=== PATIENT | female | born 1950 | race Caucasian/White ===

== ENCOUNTER → 2017-02-11 | Outpatient (CLI) | payer OTHER | LOC: FIMAGING 15:08 | PROVIDERS: ATTEND Family Medicine | DX: Z12.31 Encounter for screening mammogram for malignant neoplasm of breast (principal) | CPT/HCPCS: G0202 ==

== ENCOUNTER 2017-04-30 20:55 | Inpatient (IN) | payer OTHER ==
--- NOTE | 2017-04-30 21:07 | EDPHY ---
H & P Smoking Status: Never smoked Time Seen by Provider: 04/30/17 21:01 HPI/ROS: CHIEF COMPLAINT: Can not walk HISTORY OF PRESENT ILLNESS: History from EMS. Apparently the patient and her were drinking alcohol all day. Couple hours ago she got weak and almost fell down but her caught her and she did not sustain any trauma. She still would not walk and so EMS was called. Patient is lethargic and slurred speech and really unable to answer questions at this time. Review of systems and further history unavailable because the patient's altered mental status. PAST MEDICAL HISTORY: Depression on SSRI Social history: Recent alcohol General Appearance: Lethargic but opens eyes spontaneously and slurs her words Eyes: No scleral icterus. Pupils reactive and extraocular motion intact ENT, Mouth: Normal mucous membranes. No tongue laceration or abrasion Respiratory: Normal respiratory effort, breath sounds equal, lungs are clear to auscultation. Cardiovascular: Regular rate and rhythm. Gastrointestinal: Abdomen is soft and non tender. Neurological: Patient is alert but has slurred speech her face is symmetric and she can move all 4 extremities. Skin: She does have old ecchymoses in all 4 extremities Musculoskeletal: No extremity deformity or tenderness and no cervical thoracic or lumbar spine tenderness. Psychiatric: Not agitated. Emergency Department course/MDM: Plan for labs to include alcohol and metabolic panel. Serial clinical examinations. 2202: Ethanol is 489, temperature 34.1 degrees. Chadwick Hugger applied. 2229: Signed out to [facility] with plan for disposition after the patient is normothermic and clinically sober. (Julio Ta) Constitutional: Initial Vital Signs Heart Rate 57 L 04/30/17 21:15 Respiratory Rate 20 04/30/17 21:15 Blood Pressure 87/58 L 04/30/17 21:15 O2 Sat (%) 94 04/30/17 21:15 O2 Delivery Mode Nasal Cannula O2 (L/minute) 2 Allergies/Adverse Reactions: latex Allergy (Verified 04/30/17 21:30) Home Medications: Medication Instructions Recorded Acetaminophen [Tylenol 325mg (*)] 325 mg PO DAILY PRN 05/01/17 FLUoxetine [Prozac 20 MG (*)] 40 mg PO DAILY 05/01/17 Medical Decision Making ED Course/Re-evaluation: 1225: Patient's vitals have been hypotensive for this initially was thought to do this significant alcohol intoxication and hypothermia and that she was lying on her side, however it is noted now that she is on her back and well resuscitated with fluids 3 L normal saline, she has normal 3rd make now and alcohol levels coming down I did shoot a chest x-ray which shows bilateral pneumonia this is concerning for aspiration pneumonia. It is possible that her hypotension is due to sepsis. 1226: I have ordered blood cultures, lactic acid, I have additionally given her broad-spectrum antibiotics IV vancomycin and IV Zosyn at this time. UA is pending This patient need to be admitted to the hospitalist service for acute alcohol intoxication, hypothermia that is resolved, bilateral pneumonia, Sepsis. If her blood pressure does not improve she may need vasopressor support. 1235AM: Spoke with the hospitalist service at this time agree to admit the pain. At that time the patient be admitted to step-down unit. She is doing broad-spectrum antibiotics IV vancomycin IV Zosyn. Chest x-ray reviewed shows bilateral pneumonia. Current blood pressure 105/67, heart rate 75, pulse ox 92% on room air 1257AM: Patient's blood pressure down to 80 systolic. Patient be moved from ER room 12 to ER room 2 for central line placement. She will be verbally consented. Critical Care: Total Critical Care Time Spent Managing this Patient: 65Minutes. This time was spent Exclusively with this patient. This Care was exclusive of procedures. The Organ System/life at risk was multiorgan, hemodynamics This Patient was in Critical Condition because persistent hypotension due to bilateral pneumonia, hypothermia, alcohol intoxication, dehydration Procedure: Central line placement. Patient was verbally consented and agreed for this procedure. Indication: Persistent hypotension with bilateral pneumonia in the setting hypothermia, alcohol intoxication, elevated lactic acid, Verbal informed consent was obtained, with the risks explained to include but not be limited to bleeding, infection, and collapsed lung. A timeout was observed and patients identity and correct procedure location confirmed. Full maximal sterile barrier technique was uses including cap, gown, sterile gloves, large sheet, hand washing and chlorhexidine prep. The area anesthetized with 1 % lidocaine. The RIGHT IJ was punctured with a 19 gauge finder needle, then a TLC was placed using standard Seldinger technique. There were no complications. Blood return low pressure, dark blood. Patient tolerated procedure well. CXR results: Negative for Pneumo, 9 is a little deep on 1st chest x-ray.. X-ray was interpreted by myself. The procedure was performed by myself. ED x-ray chest one view: Post line placement; line is deep. No pneumothorax. Will adjust line. And then repeat chest x-ray. 0131: Patient resting comfortably no complications central line in the right IJ. Blood pressure currently 85/65. Patient receive 4 L of fluid here in emergency room. So be started on low-dose Levophed to maintain her blood pressure. The lowest I have seen her 70 systolic. Broad-spectrum antibiotics were given vancomycin and Zosyn. Her initial lactic acid after 3 L of fluids 2.3. Lactic acid was elevated due to acute alcohol intoxication, volume depletion dehydration and bilateral focal pneumonia. 0134AM: Repeat chest x-ray one view for line placement: Shows good line placement. In the appropriate position. No pneumothorax. This is the 2nd chest x-ray for just line placement. Okay to use line for Levophed. Repeat lactic acid pending. 0152AM: mag and calcium low. Will replete in Er. (Kanu Kong) Differential Diagnosis: Differential for weakness and altered mental status considered including but not limited to seizure, stroke, metabolic, alcohol or drug, psychiatric. (Julio Ta) Critical Care Time: Critical care time spent by me, Dr. Ta, exclusively with the care of this patient was 30 minutes, exclusive of PA or SENIOR DEVOPS ENGINEER time and exclusive of separate procedures. The organ system at risk was metabolic and environmental with hypothermia and I ordered active external warming, serial exams, multiple diagnostic studies to stabilize the patient and prevent worsening of the patient 's condition. (Julio Ta) - Data Points Laboratory Results: Laboratory Results 04/30/17 21:00 04/30/17 21:00 Medications Given: Chlordiazepoxide HCl (Librium) 10 mg PO TID PRN PRN Reason: Anxiety, Able to Take PO Stop: 10/28/17 14:07 Last Admin: 05/01/17 22:15 Dose: 10 mg Enoxaparin Sodium (Lovenox) 40 mg SC DAILY [facility] Stop: 10/28/17 08:59 Last Admin: 05/01/17 08:35 Dose: 40 mg Folic Acid (Folic Acid) 1 mg PO DAILY R[facility]ARD Stop: 10/28/17 08:59 Last Admin: 05/01/17 09:33 Dose: Not Given Sodium Chloride (Ns) 1,000 mls @ 150 mls/hr IV CONT R[facility]ARD Stop: 10/28/17 00:44 Last Admin: 05/01/17 22:15 Dose: 1,000 mls Thiamine HCl 500 mg/ Sodium (Chloride) 255 mls @ 255 mls/hr IV DAILY [facility]ARD Stop: 05/04/17 08:59 Last Admin: 05/01/17 08:35 Dose: 255 mls Piperacillin/Tazobactam/Dextrose (Zosyn (Premix)) 100 mls @ 200 mls/hr IV Q6HRS RICHARD PRN Reason: Protocol Stop: 05/31/17 17:59 Last Admin: 05/01/17 18:25 Dose: 100 mls Azithromycin 500 mg/ Sodium (Chloride) 255 mls @ 255 mls/hr IV DAILY RICHARD PRN Reason: Protocol Stop: 05/31/17 13:59 Last Admin: 05/01/17 14:31 Dose: 255 mls Multivitamins (Tab-A-Darlene) 1 each PO DAILY RICHARD Stop: 10/28/17 08:59 Last Admin: 05/01/17 09:04 Dose: 1 each Discontinued Medications Folic Acid (Folic Acid) 1 mg PO DAILY RICHARD Stop: 10/28/17 08:59 Last Admin: 05/01/17 09:05 Dose: 1 mg Sodium Chloride (Ns) 1,000 mls @ 0 mls/hr IV ONCE ONE PRN Reason: Wide Open Stop: 04/30/17 22:24 Last Admin: 04/30/17 21:25 Dose: 1,000 mls Sodium Chloride (Ns) 1,000 mls @ 0 mls/hr IV ONCE ONE PRN Reason: Wide Open Stop: 04/30/17 22:46 Last Admin: 04/30/17 22:50 Dose: 1,000 mls Sodium Chloride (Ns) 1,000 mls @ 0 mls/hr IV ONCE ONE PRN Reason: Wide Open Stop: 04/30/17 23:52 Last Admin: 04/30/17 23:50 Dose: 1,000 mls Vancomycin/Sodium Chloride (Vancomycin 1 Gm (Premix)) 250 mls @ 250 mls/hr IV EDNOW ONE PRN Reason: Protocol Stop: 05/01/17 01:23 Last Admin: 05/01/17 01:26 Dose: 250 mls Piperacillin/Tazobactam/Dextrose (Zosyn (Premix)) 100 mls @ 200 mls/hr IV EDNOW ONE PRN Reason: Protocol Stop: 05/01/17 00:53 Last Admin: 05/01/17 01:31 Dose: 100 mls Calcium Gluconate 2 gm/ (Dextrose) 70 mls @ 140 mls/hr IV EDNOW ONE Stop: 05/01/17 02:21 Last Admin: 05/01/17 02:21 Dose: 70 mls Magnesium Sulfate (Magnesium Sulf 2 Gm (Premix)) 50 mls @ 50 mls/hr IV EDNOW ONE Stop: 05/01/17 02:51 Last Admin: 05/01/17 02:02 Dose: 50 mls Norepinephrine 4 mg/ Sodium (Chloride) 500 mls @ 0 mls/hr IV EDNOW ONE; Per Protocol PRN Reason: Protocol Stop: 05/01/17 03:01 Last Admin: 05/01/17 02:54 Dose: 500 mls Piperacillin/Tazobactam/Dextrose (Zosyn (Premix)) 100 mls @ 200 mls/hr IV Q6HRS RICHARD PRN Reason: Protocol Stop: 05/31/17 05:59 Last Admin: 05/01/17 13:20 Dose: Not Given Potassium Chloride (Potassium Cl 20 Meq (Premix)) 50 mls @ 50 mls/hr IV EDNOW ONE Stop: 05/01/17 05:59 Last Admin: 05/01/17 05:14 Dose: 50 mls Potassium Chloride 10 meq/ (Dextrose) 50 mls @ 100 mls/hr IV EDNOW ONE Stop: 05/01/17 06:29 Last Admin: 05/01/17 06:47 Dose: Not Given Sodium Chloride (Ns) 500 mls @ 1,500 mls/hr IV ONCE ONE Stop: 05/01/17 10:04 Last Admin: 05/01/17 09:46 Dose: 500 mls Magnesium Sulfate (Magnesium Sulf 2 Gm (Premix)) 50 mls @ 50 mls/hr IV ONCE ONE Stop: 05/01/17 15:29 Last Admin: 05/01/17 14:42 Dose: 50 mls Departure - Departure Disposition: [facility] In[facility] Acute Clinical Impression: Hypomagnesemia, Hypocalcemia Alcoholic intoxication Qualifiers: Complication of substance-induced condition: uncomplicated Qualified Code(s): F10.920 - Alcohol use, unspecified with intoxication, uncomplicated Hypothermia Qualifiers: Encounter type: initial encounter Qualified Code(s): T68.XXXA - Hypothermia, initial encounter Hypotension Qualifiers: Hypotension type: unspecified hypotension type Qualified Code(s): I95.9 - Hypotension, unspecified Pneumonia Qualifiers: Pneumonia type: due to unspecified organism Laterality: bilateral Lung location : unspecified part of lung Qualified Code(s): J18.9 - Pneumonia, unspecified organism Condition: Critical
[2017-04-30 21:12] LABS: PLATELET COUNT 294 10^3/uL (150-400)
[2017-04-30] MEDS ORDERED: NS 1,000 ML IV ONE ×3 (22:23→23:51)
[2017-05-01] MEDS ORDERED: PIPERACILLIN/TAZO 4.5 GM/DEX 100 ML IV ONE (00:24)
[2017-05-01] MEDS ORDERED: VANCOMYCIN HCL/NORMAL SALINE 250 ML IV ONE (00:24)
[2017-05-01] MEDS ORDERED: ACETAMINOPHEN 325 MG TAB PO PRN (00:40)
[2017-05-01] MEDS ORDERED: ONDANSETRON 4 MG/2 ML VIAL IVP PRN (00:40)
[2017-05-01] MEDS ORDERED: NOREPINEPHRINE/NS 500 ML IV ONE (00:56)
[2017-05-01 01:05] LABS: PLATELET COUNT 187 10^3/uL (150-400)
[2017-05-01] MEDS: NS 1,000 ML IV SCH ×4 (01:25→22:15)
[2017-05-01] MEDS ORDERED: CALCIUM GLUCONATE 2 GM in D5W 50 ML IV ONE (01:52)
[2017-05-01] MEDS ORDERED: MAGNESIUM SULF 2 GM/WATER 50 ML IV ONE ×2 (01:52→14:30)
[2017-05-01] MEDS ORDERED: MAGNESIUM SULF 2 GM/WATER 50 ML BAG IV ONE (01:57)
[2017-05-01] MEDS ORDERED: NOREPINEPHRINE BITARTRATE 4 MG in NS 500 ML IV ONE (03:00)
[2017-05-01] MEDS ORDERED: NOREPINEPHRINE BITARTRATE 4 MG in NS 500 ML IV SCH (03:00)
[2017-05-01] MEDS ORDERED: PROTOCOL POTASSIUM 1 DOSE MISC PRN (03:06)
[2017-05-01] MEDS ORDERED: PROTOCOL MAGNESIUM 1 DOSE IV PRN (03:06)
[2017-05-01] MEDS ORDERED: PROTOCOL K PHOSPHATE 1 DOSE IV PRN (03:06)
[2017-05-01] MEDS ORDERED: PROTOCOL CALCIUM 1 DOSE IV PRN (03:06)
[2017-05-01] MEDS ORDERED: LORazepam 2 MG/ML INJ IVP PRN (03:09)
--- NOTE | 2017-05-01 04:16 | GHP ---
[f rep st] HISTORY AND PHYSICAL DATE OF ADMISSION: 05/01/2017 SOURCE: Patient overall is a poor historian. She is able to provide some past medical history but unable to recall events leading up to her visit in the ER. Case discussed with ED provider, and EMR reviewed. CHIEF COMPLAINT: Generalized weakness. HISTORY OF PRESENT ILLNESS: This is a pleasant 66-year-old female with past medical history significant for alcohol dependence, chronic pain on chronic opiate therapy, history of alcoholism with withdrawal seizures, anxiety, depression, chronic pain due to arthritis who presents to emergency department today for worsening generalized weakness. Apparently, patient had been drinking all day with her . She was attempting to ambulate and had significant amount of weakness. She nearly fell down, but her caught her. Patient brought into the emergency department for further evaluation. She does report that she has been experiencing a cough for a "long time." She does report coughing up phlegm. She has occasional rhinorrhea. No sore throat. No recent sick contacts. Patient denies any chest pain, palpitations. REVIEW OF SYSTEMS: Negative except as noted above. ALLERGIES: Latex, otherwise no known drug allergies. HOME MEDICATIONS: As per EMR. Percocet 5/325, one to two tabs p.o. q.4 hours p.r.n.; Oxy IR 5-10 mg p.o. q.3 hours p.r.n.; Zofran ODT 4 mg p.o. q.4 hours p.r.n.; Ativan 1 mg p.o. q.4 hours p.r.n.; Prozac 20 mg p.o. daily; diazepam 10 mg p.o. daily p.r.n.; calcium-vitamin D 1 tab daily. PAST MEDICAL HISTORY: Significant for alcohol dependence with history of withdrawal seizures, chronic pain on chronic opiate therapy, anxiety, depression , seasonal allergies, osteoarthritis, vitamin D deficiency with osteopenia, hyperlipidemia. PAST SURGICAL HISTORY: Significant for bunionectomy bilaterally, appendectomy, and bilateral cataracts. FAMILY HISTORY: Significant for mother with osteoporosis; she is now . No DVT or PE in the family. SOCIAL HISTORY: Patient is , lives with her . She does drink alcohol on a daily basis. She prefers vodka, but she is not able to quantify. She just says it is "a lot." Denies any illicit drug use or marijuana. Patient denies any tobacco use. CODE STATUS: Even before I can complete my sentence regarding resuscitation, patient states that she is a do not resuscitate in those words. When asked about intubation, patient also indicates that she does not want any heroic measures, but she is amenable to pressor support. PHYSICAL EXAMINATION: VITALS UPON ARRIVAL TO THE EMERGENCY DEPARTMENT: Blood pressure 87/58, heart rate 57, respiratory rate 20, O2 sat 94% on 3 L by nasal cannula. Patient's initial temperature was 34.1. VITALS CURRENTLY: Blood pressure at bedside increased to 102 systolic with addition of Levophed prior to this. Heart rate 78, respiratory rate 16, O2 sat 94% on 3 L by nasal cannula with a temperature of 36.3. GENERAL: Pleasant, frail, thin, adult female is lying quietly in bed in no acute distress. She is in fairly good spirits and smiles and laughs intermittently. HEAD: Normocephalic, atraumatic. EYES: Extraocular muscles are intact. Pupils are equal, round, and minimally reactive to light bilaterally, but lens reflex is appreciated bilaterally. ENT: Mucous membranes appear quite dry. No oropharyngeal erythema or exudates. NECK: Supple. Trachea midline. CV: Right IJ is in place. Regular rate and rhythm. No murmurs, rubs, or gallops. Slightly distant heart sounds. RESPIRATORY: Some coarsened sounds on the right upper lung field and on the left lower lung field greater than the right. There are crackles. No wheezes or rhonchi. Unlabored breathing. ABDOMEN: Positive bowel sounds. Soft. Nontender to palpation. No rebound, guarding, or masses appreciated. : Covarrubias catheter in place. No suprapubic tenderness to palpation. EXTREMITIES: Patient without any cyanosis, clubbing, or edema appreciated. Patient with trace pedal pulses bilaterally and symmetric. NEURO : Grossly nonfocal. No facial drooping. Moves all extremities. Generalized weakness. PSYCH: Patient is awake, alert, and oriented to person and place but not time. She is otherwise pleasant and cooperative. She occasionally laughs. LABORATORY STUDIES: WBC initially 13.0, H and H 15.6 and 46.8, MCV 98.5, platelet count 294, without any bands or left shift. Patient's repeated CBC notes decreased WBC to 4.69, H and H also slightly declined to 11.3 and 33.8, platelet count remains within normal limits but decreased also to 187, no bands. VBG: Lactic acid 2.3, initially down to 1.8. Sodium 142, potassium 5.0 , chloride 103, CO2 17, anion gap 22, BUN 12, creatinine 0.6, GFR greater than 60, glucose 102, calcium 9.3, magnesium 1.2. Repeated BMP showing sodium 145, potassium 3.6, chloride 114, CO2 20, BUN 10, creatinine 0.5, GFR greater than 60 , glucose 78, calcium 6.9, magnesium 1.2. IMAGING STUDIES: Chest x-ray: Image report reviewed myself showing bilateral pneumonia, greatest right upper lobe. ASSESSMENT AND PLAN: Pleasant 66-year-old female with history of alcohol dependence who presents to the emergency department with generalized weakness, sudden onset. 1. Septic shock. Patient's chest x-ray consistent with bilateral pneumonia. It is unclear if this potentially could be partially aspiration. She has no risk factors for MRSA. She received vancomycin and Zosyn in the emergency department. Will plan to continue Zosyn. Blood cultures have been ordered. Lactate has normalized. 2. Lactic acidosis. Patient initially with anion gap acidosis. Also contributor could be alcohol ketosis given her alcohol level was greater than 400. Lactates have normalized. Continue with aggressive IV fluid hydration. 3. Hypothermia related to patient's sepsis, now improved. 4. Alcohol intoxication. Patient with history of drinking large quantities of alcohol by her report. Will continue to monitor. CIWA protocol has been ordered. 5. Alcohol ketosis. IV fluids. Normalizing anion gap. Continue to monitor. 6. Anemia, likely of chronic disease. Patient without any current evidence of bleeding. Will continue to monitor, particularly in setting of IV fluids. 7. Hypokalemia, hypocalcemia, hypomagnesemia, hypoalbuminemia. Electrolytes will be monitored and replaced as needed. Hypoalbuminemia is likely secondary to patient's chronic alcoholism as well as her acute illness. 8. Chronic pain due to arthritis, possibly rheumatoid. Patient chronically on narcotics at this time, is not complaining of pain. Will continue to monitor. Avoid Tylenol products with recent large volume alcohol ingestion. 9. Udzoed-dptceszpzpgi-vhlqqlkuv. Continue IV fluids, normal saline with aggressive IV fluid hydration. Electrolytes will be monitored and replaced as noted above. Patient will be placed on a regular diet as tolerated. 10. Prophylaxis. SCDs. Lovenox. 11. Code status. DNR-DNI. Again, even before I could finish my sentence, patient adamantly stating that she was a do not resuscitate. She is amenable to pressor support. Will follow up with the patient again once patient's alcohol level is improved. DISPOSITION: Patient has been admitted to inpatient status on the ICU floor due to increased need for pressor support and for patient's septic shock and pneumonia. /[id number]/MODL MTDD
[2017-05-01] MEDS ORDERED: POTASSIUM Cl (KCl) 50 ML IV ONE (05:00)
[2017-05-01] MEDS ORDERED: POTASSIUM Cl (KCl) 10 MEQ in D5W 50 ML IV ONE (06:00)
[2017-05-01 06:46] LABS: CREATINE KINASE 492 IU/L (0-156)
[2017-05-01 06:54] LABS: INR 0.99 (0.83-1.16); PROTIME(PATIENT) 13.3 SEC (12.0-15.0)
[2017-05-01 06:58] LABS: PLATELET COUNT 240 10^3/uL (150-400)
[2017-05-01] MEDS: PIPERACILLIN/TAZO 4.5 GM/DEX 100 ML IV SCH ×4 (07:48→18:25)
[2017-05-01] MEDS: ENOXAPARIN 40 MG/0.4 ML SYR SC SCH (08:35)
[2017-05-01] MEDS: THIAMINE HCL 500 MG in NS 250 ML IV SCH (08:35)
[2017-05-01] MEDS ORDERED: THIAMINE HCL 100 MG in NS 250 ML IV SCH (09:00)
[2017-05-01] MEDS ORDERED: FOLIC ACID 1 MG TAB PO SCH (09:00)
[2017-05-01] MEDS: MULTIVITAMINS 1 EACH TAB PO SCH (09:04)
[2017-05-01] MEDS: FOLIC ACID 1 MG TAB PO SCH (09:33)
[2017-05-01] MEDS ORDERED: NS 500 ML IV ONE (09:45)
--- NOTE | 2017-05-01 11:24 | PDMN ---
Medical Necessity Medical necessity: Patient meets inpatient criteria per physician note and MCG Systemic or Infectious Condition GRG (septic shock w/bilateral pneumonia; lactic acidosis/lactate 2.3, anion gap 22, ; hypothermia/temp 34.1, ETOH 489; systolic B/P 80's; leukocytosis/WBC > 13,000; history of alcohol dependence, chronic pain d/t arthritis with chronic opiate therapyanticipated LOS > 2 midnights for IV antibiotics/hydration/treatment of multiple electrolyte imbalances, Levophed IV gtt, CIWA protocol.)
--- NOTE | 2017-05-01 12:44 | ASMTCASEMG ---
Living Arrangements What is your living Answers: With Spouse arrangement? Who do you live with? Type Of Residence What kind of residence do Answers: House you live in? Stairs in Home Answers: No Environment Case Management Evaluation Functional: Able to Answers: No return Home with Prior Level of Function/Care Psychosocial Needs: Answers: Active Substance Abuse Notes: ETOH Discharge Plan Comments Coordination Status Comments Notes: Pt lives with her of 45 years, Sudhir. Sudhir confirmed DNR status. He reported they have no friends or family locally and indicated the couple stays to themselves. He reported that they both consume alcohol on a nightly basis which he described as a couple of drinks containing hard alcohol. He reported a great deal of family and health related stress issues over the last year. By his account they had a couple of drinks last night and he awake to hearing her fall. He was unable to get her to move and called an ambulance. He "guessed" that she consumed additional alcohol after he went to sleep. He stated that the pt does not eat food on a regular basis. They expressed interest in resources for alcohol abuse and nutrition. Date Signed: 05/01/2017 12:44 PM Electronically Signed By:Rashawn Jimenez LCSW
--- NOTE | 2017-05-01 14:17 | HOSPPROG ---
Hospitalist Progress Note Assessment/Plan: 66 yo F admitted w sepsis, b/l pneumonia, hypotension and AGMA AGMA: gap has closed. largely 2/2 alcoholic ketoacidosis, but elevated lactate sepsis: source is lung lactate normalized levophed being weaned off cvp 8-10 will rebolus as needed pneumonia: zosyn/azithro alcoholism: at high risk for withdrawal start librium 10 tid proph: lmwh 40' crit care Subjective: on levophed. case d/w dr sotelo Objective: Vital Signs Temp Pulse Resp BP Pulse Ox 36.9 C 85 18 127/84 H 97 05/01/17 12:15 05/01/17 12:15 05/01/17 12:15 05/01/17 12:15 05/01/17 12:15 Laboratory Results 05/01/17 06:45 05/01/17 11:54 04/30/17 05/01/17 05/02/17 05:59 05:59 05:59 Intake Total 4300 Output Total 1550 Balance 2750 PT 13.3 SEC (12.0-15.0) 05/01/17 06:00 INR 0.99 (0.83-1.16) 05/01/17 06:00 - Physical Exam Constitutional: no apparent distress, not in pain Eyes: PERRL, anicteric sclera Ears, Nose, Mouth, Throat: moist mucous membranes, hearing normal Cardiovascular: no murmur, rub, or gallop, tachycardia Respiratory: other (b/l rhonchi w good air movement. no wheeze) Gastrointestinal: normoactive bowel sounds, soft, non-tender abdomen Genitourinary: no bladder fullness, No dailey in urethra Skin: warm, normal color Musculoskeletal: full muscle strength, no muscle tenderness Neurologic: AAOx3, sensation intact bilaterally Psychiatric: interacting appropriately ICD10 Worksheet Patient Problems: Problems Problem Status Onset Alcoholic intoxication Acute Hypocalcemia Acute Hypomagnesemia Acute Hypotension Acute Hypothermia Acute Pneumonia Acute Hypoxia Acute
[2017-05-01] MEDS: AZITHROMYCIN IV 500 MG in NS 250 ML IV SCH (14:31)
--- NOTE | 2017-05-01 16:34 | GCON ---
[f rep st] CONSULTATION PULMONARY/CRITICAL CARE DATE OF CONSULTATION: 05/01/2017 REFERRING PHYSICIAN: Nino Banuelos MD REASON FOR REFERRAL: Evaluation and management of pulmonary infiltrates, and hypotension, possible sepsis. HISTORY: The patient is a 66-year-old woman with a history of alcohol dependence, chronic pain, who presented to the emergency department last night with generalized weakness. She has also had a cough for a while. She denies exposure to anybody else who has been ill. She had been drinking throughout the day. In the emergency department, she was found to be hypotensive and hypothermic. She was treated with IV fluids and antibiotics, and then transferred to the intensive care unit. She currently reports that she is feeling a bit stronger. She still has some cough. She denies any nausea or vomiting. PAST MEDICAL HISTORY: 1. Alcohol dependence with a history of withdrawal seizures. 2. Chronic pain, on chronic opiates. 3. Anxiety. 4. Depression. 5. Osteoarthritis. MEDICATIONS: At the time of admission include Percocet, Oxy-IR, Zofran, Ativan , Prozac, diazepam. Here in the hospital, she has been started on Zosyn and azithromycin. ALLERGIES: Latex. SOCIAL HISTORY: The patient is and lives with her . She drinks a large amount of alcohol on a daily basis. She denies drug use. FAMILY HISTORY: Unremarkable. REVIEW OF SYSTEMS: A 10-point review of systems adds nothing to the History of Present Illness. PHYSICAL EXAMINATION: VITAL SIGNS: Blood pressure is 117/83, with a heart rate of 87. She is afebrile. Oxygen saturations are 97% on 2 L. HEENT: Normocephalic and atraumatic. No icterus. NECK: No adenopathy, trachea is midline. Trachea is midline. CHEST: Clear to auscultation. CARDIAC: Regular rate and rhythm without murmur. ABDOMEN: Soft, nontender. Bowel sounds are present. EXTREMITIES: No clubbing, cyanosis, or edema. NEURO: The patient is awake. She is oriented x3. She has mild tremor. She has no gross motor or sensory deficits. LABORATORY: Sodium is 147, up from 142 at admission. Creatinine is 0.6. Glucose is 110. White blood count is 6.5, down from 13.1 at admission. Hemoglobin is 11.1, down from 15.6. Venous lactate was initially 2.3, then down to 1.8 early this morning. Urinalysis shows 5-10 white blood cells. An alcohol level was 489, and cocaine and benzodiazepine screens were positive on urine toxicology test. A chest x-ray shows some diffuse patchy interstitial changes. Images were reviewed by me. Blood cultures are negative. ASSESSMENT: 1. Possible severe sepsis. The patient has presented with hypotension and an elevated lactate that responded to fluids. She had a chest x-ray that could be consistent with a pneumonia, although there is no dense consolidation. She has been empirically covered with Zosyn and azithromycin. 2. Acute alcohol intoxication. The patient has a history of chronic alcohol abuse and came in with an elevated alcohol level. She is at risk for alcohol withdrawal, delirium tremens, and seizure. 3. Anion gap metabolic acidosis. The anion gap is closed and the patient's bicarbonate level has improved slightly, although it is still a bit low. RECOMMENDATIONS: 1. Continue empiric antibiotics. 2. Continue IV fluids. The patient has been weaned off pressors, which had been started because of her hypotension. 3. Check an influenza swab. 4. Monitor for alcohol withdrawal on the [facility] protocol. /[id number]/MODL MTDD
[2017-05-02] MEDS: PIPERACILLIN/TAZO 4.5 GM/DEX 100 ML IV SCH ×4 (00:41→17:33)
[2017-05-02] MEDS: NS 1,000 ML IV SCH (05:27)
[2017-05-02] MEDS ORDERED: MAGNESIUM SULF 1 GM/DEXTROSE 100 ML IV ONE (07:52)
[2017-05-02] MEDS: AZITHROMYCIN IV 500 MG in NS 250 ML IV SCH (08:41)
[2017-05-02] MEDS: FLUoxetine 20 MG CAP PO SCH (08:41)
[2017-05-02] MEDS: MULTIVITAMINS 1 EACH TAB PO SCH (08:41)
[2017-05-02] MEDS: THIAMINE HCL 500 MG in NS 250 ML IV SCH (08:41)
[2017-05-02] MEDS: FOLIC ACID 1 MG TAB PO SCH (08:41)
[2017-05-02] MEDS: ENOXAPARIN 40 MG/0.4 ML SYR SC SCH (08:41)
--- NOTE | 2017-05-02 09:12 | HOSPPROG ---
Hospitalist Progress Note Assessment/Plan: 66 yo F admitted w sepsis, b/l pneumonia, hypotension and AGMA AGMA: gap has closed. largely 2/2 alcoholic ketoacidosis, but elevated lactate repeat labs now sepsis: source is lung lactate normalized levophed being weaned off cvp 8-10 will rebolus as needed pneumonia: zosyn/azithro denies pulm sx flu neg, blood cx neg alcoholism: at high risk for withdrawal start librium 10 tid proph: lmwh code: full dispo: to floor today Subjective: alert. svt which broke w vagal maneuver. case d/w dr valadez. afebrile Objective: Vital Signs Temp Pulse Resp BP Pulse Ox 37.0 C 71 14 116/78 98 05/02/17 06:00 05/02/17 07:54 05/02/17 07:54 05/02/17 07:54 05/02/17 07:54 Laboratory Results 05/01/17 06:45 05/02/17 05:30 05/01/17 05/02/17 05/03/17 05:59 05:59 05:59 Intake Total 8030 Output Total 2850 400 Balance 5180 -400 PT 13.3 SEC (12.0-15.0) 05/01/17 06:00 INR 0.99 (0.83-1.16) 05/01/17 06:00 - Physical Exam Constitutional: no apparent distress, appears nourished Eyes: PERRL, anicteric sclera Ears, Nose, Mouth, Throat: moist mucous membranes, hearing normal Cardiovascular: regular rate and rhythym, no murmur, rub, or gallop Respiratory: no respiratory distress, rhonchi, No no rales or rhonchi Gastrointestinal: normoactive bowel sounds, soft, non-tender abdomen Genitourinary: no bladder fullness, No dailey in urethra Skin: warm, normal color Musculoskeletal: full muscle strength Neurologic: AAOx3 ICD10 Worksheet Patient Problems: Problems Problem Status Onset Alcoholic intoxication Acute Hypocalcemia Acute Hypomagnesemia Acute Hypotension Acute Hypothermia Acute Pneumonia Acute Hypoxia Acute
[2017-05-03] MEDS: PIPERACILLIN/TAZO 4.5 GM/DEX 100 ML IV SCH ×2 (05:26)
[2017-05-03] MEDS ORDERED: POTASSIUM CL 10 MEQ TAB PO ONE (06:24)
[2017-05-03] MEDS ORDERED: MAGNESIUM SULF 2 GM/WATER 50 ML IV ONE (06:25)
[2017-05-03] MEDS: AZITHROMYCIN IV 500 MG in NS 250 ML IV SCH (08:38)
[2017-05-03] MEDS: FOLIC ACID 1 MG TAB PO SCH (08:42)
[2017-05-03] MEDS: FLUoxetine 20 MG CAP PO SCH (08:42)
[2017-05-03] MEDS: MULTIVITAMINS 1 EACH TAB PO SCH (08:43)
[2017-05-03] MEDS: ENOXAPARIN 40 MG/0.4 ML SYR SC SCH (08:44)
[2017-05-03] MEDS: THIAMINE HCL 500 MG in NS 250 ML IV SCH (09:26)
--- NOTE | 2017-05-03 10:56 | HOSPPROG ---
Hospitalist Progress Note Assessment/Plan: 66 yo F admitted w sepsis, b/l pneumonia, hypotension and AGMA AGMA: gap has closed. largely 2/2 alcoholic ketoacidosis, but elevated lactate repeat labs now sepsis: source is lung lactate normalized levophed being weaned off cvp 8-10 will rebolus as needed pneumonia: transition to po levoflox alcoholism: at high risk for withdrawal start librium 10 tid stable proph: lmwh code: full dispo: pt/ot evals Subjective: off pressors. alert. on RA Objective: Vital Signs Temp Pulse Resp BP Pulse Ox 36.4 C 90 20 118/98 H 95 05/03/17 07:43 05/03/17 07:43 05/03/17 07:43 05/03/17 07:43 05/03/17 07:43 Laboratory Results 05/03/17 05:20 05/03/17 05:20 05/02/17 05/03/17 05/04/17 05:59 05:59 05:59 Intake Total 8030 2150 Output Total 2850 550 Balance 5180 1600 PT 13.3 SEC (12.0-15.0) 05/01/17 06:00 INR 0.99 (0.83-1.16) 05/01/17 06:00 - Physical Exam Constitutional: no apparent distress, appears nourished Eyes: PERRL, anicteric sclera Ears, Nose, Mouth, Throat: moist mucous membranes, hearing normal Cardiovascular: regular rate and rhythym, no murmur, rub, or gallop Respiratory: no respiratory distress, rhonchi Gastrointestinal: normoactive bowel sounds, soft, non-tender abdomen Genitourinary: no bladder fullness, No dailey in urethra Skin: warm, normal color Musculoskeletal: full muscle strength, no muscle tenderness Neurologic: AAOx3 Psychiatric: interacting appropriately, not anxious ICD10 Worksheet Patient Problems: Problems Problem Status Onset Alcoholic intoxication Acute Hypocalcemia Acute Hypomagnesemia Acute Hypotension Acute Hypothermia Acute Pneumonia Acute Hypoxia Acute
[2017-05-04 07:49] VITALS: BP 129/96; PULSE 94; RESP 16; TEMP 98.7; O2SAT 92
[2017-05-04] MEDS: FLUoxetine 20 MG CAP PO SCH (08:31)
[2017-05-04] MEDS: ENOXAPARIN 40 MG/0.4 ML SYR SC SCH (08:32)
[2017-05-04] MEDS: FOLIC ACID 1 MG TAB PO SCH (08:33)
[2017-05-04] MEDS: MULTIVITAMINS 1 EACH TAB PO SCH (08:33)
[2017-05-04] MEDS ORDERED: POTASSIUM CL 10 MEQ TAB PO ONE (08:44)
--- NOTE | 2017-05-04 09:34 | HOSPPROG ---
Hospitalist Progress Note Assessment/Plan: 66 yo F admitted w sepsis, b/l pneumonia, hypotension and AGMA AGMA: gap has closed. largely 2/2 alcoholic ketoacidosis, but elevated lactate repeat labs now sepsis: source is lung lactate normalized levophed being weaned off cvp 8-10 will rebolus as needed pneumonia: transition to po levoflox alcoholism: at high risk for withdrawal start librium 10 tid stable proph: lmwh code: full dispo: home today > 30 minutes see dc summary Subjective: feels well. on RA. anxious for dc Objective: Vital Signs Temp Pulse Resp BP Pulse Ox 37.1 C 94 16 129/96 H 92 05/04/17 07:45 05/04/17 07:45 05/04/17 07:45 05/04/17 07:45 05/04/17 07:45 Laboratory Results 05/04/17 05:30 05/04/17 05:30 05/03/17 05/04/17 05/05/17 05:59 05:59 05:59 Intake Total 2150 700 Output Total 550 Balance 1600 700 PT 13.3 SEC (12.0-15.0) 05/01/17 06:00 INR 0.99 (0.83-1.16) 05/01/17 06:00 - Physical Exam Constitutional: no apparent distress, appears nourished Eyes: PERRL, anicteric sclera Ears, Nose, Mouth, Throat: moist mucous membranes, hearing normal Cardiovascular: regular rate and rhythym, no murmur, rub, or gallop Respiratory: no respiratory distress, rhonchi Gastrointestinal: normoactive bowel sounds, soft, non-tender abdomen Genitourinary: no bladder fullness, No dailey in urethra Skin: warm, normal color Musculoskeletal: full muscle strength, no muscle tenderness Neurologic: AAOx3 ICD10 Worksheet Patient Problems: Problems Problem Status Onset Alcoholic intoxication Acute Hypocalcemia Acute Hypomagnesemia Acute Hypotension Acute Hypothermia Acute Pneumonia Acute Hypoxia Acute
--- NOTE | 2017-05-04 09:49 | ASMTCAGE ---
CAGE Do you feel you ought to Answers: Yes cut down on your drinking or drug use? Do people annoy you by Answers: No criticizing your drinking or drug use? Do you feel guilty about Answers: No your drinking or drug use? Do you drink or use drugs Answers: No first thing in the morning (Eye [employer] Stretcher Hand)? Date Signed: 05/04/2017 09:48 AM Electronically Signed By:Lorie Schmitt LCSW
--- NOTE | 2017-05-04 10:01 | GDS ---
[f rep st] DISCHARGE SUMMARY DISCHARGE DIAGNOSES: 1. Severe alcohol intoxication with blood alcohol level of 489. 2. Pneumonia, suspected aspiration. 3. Sepsis, now resolved. Please see admission history and physical by Dr. Pennie Salter. The patient presented on the evening of the into the [employer] member hours of the with weakness. She had a very high blood alcoho l level. She was tox screen positive for benzodiazepines and cocaine. Chest x-ray showed bilateral airspace disease consistent with possible aspiration pneumonia. She received Zosyn and azithromycin. She was transitioned to levofloxacin. She had no meaningful microbiology data. She was influenza negative. She was seen by PT/OT who felt that she was safe for discharge home, and that is therefore done. /[id number]/MODL
== END 2017-05-04 10:45 | disposition home or self-care (01) | DRG 871 ==
LOC: EDUNIT# → F2N 05-01 12:05
PROVIDERS: ADMIT Family Medicine; ATTEND Internal Medicine
PROC: 02HV33Z Insertion of Infusion Device into Superior Vena Cava, Percutaneous Approach (ICD-10-PCS; principal; 2017-05-01)
PROC: 3E043XZ Introduction of Vasopressor into Central Vein, Percutaneous Approach (ICD-10-PCS; principal; 2017-05-01)
PROC: HZ2ZZZZ Detoxification Services for Substance Abuse Treatment (ICD-10-PCS; 2017-05-01)
DX: A41.9 Sepsis, unspecified organism (principal); J69.0 Pneumonitis due to inhalation of food and vomit; E87.2 Acidosis; I95.89 Other hypotension; F10.220 Alcohol dependence with intoxication, uncomplicated; Y90.8 Blood alcohol level of 240 mg/100 ml or more; M19.91 Primary osteoarthritis, unspecified site; G89.29 Other chronic pain; Z79.891 Long term (current) use of opiate analgesic; M85.89 Other specified disorders of bone density and structure, multiple sites; E78.5 Hyperlipidemia, unspecified; F32.9 Major depressive disorder, single episode, unspecified; F41.9 Anxiety disorder, unspecified
CPT/HCPCS: 80305; 97161-GP; 97165-GO; G0480; G8978-GP-CI; G8979-GP-CI; G8980-GP-CI; G8987-GO-CI; G8988-GO-CI; G8989-GO-CI; J0456; J0610; J1650; J2060; J2543; J3370; J3411; J3475; J3480

== ENCOUNTER 2017-06-07 16:52 | Emergency (ER) | payer OTHER ==
[2017-06-07 17:03] VITALS: TEMP 98.6
[2017-06-07] MEDS ORDERED: NS 500 ML IV ONE (17:17)
--- NOTE | 2017-06-07 17:37 | EDPHY ---
H & P Time Seen by Provider: 06/07/17 17:06 HPI/ROS: HPI Alcohol intoxication. 66-year-old female by private vehicle with . The was apparently watching basketball games. This patient was in another room. She suddenly started screaming her 's name. Her came to her side and she was obviously very intoxicated. She has a long history of alcohol abuse. She admits to drinking a large amount of vodka. is not sure how she got this. No other ingestion. The reports the last time she was very intoxicated she developed pneumonia. There is no history of trauma. The patient denies any complaint at this time. ROS: Constitutional: No fever, no chills. As above. Eyes: No discharge. No changes in vision. ENT: No sore throat. No nasal congestion or rhinorrhea. Respiratory: No cough. No shortness of breath. Cardiac: No chest pain, no palpitations. Gastrointestinal: No abdominal pain, no vomiting, no diarrhea. Genitourinary: No hematuria. No dysuria or increased frequency with urination. Musculoskeletal: No back pain. No neck pain. No myalgias or arthralgias. Skin: No rashes. Neurological: No headache. No focal weakness or altered sensation. Past medical history: Alcoholism, narcotic dependency, chronic pain, arthritis , hyperlipidemia, depression, bunion surgeries. Social history: Here with her . Lives with her . Alcohol abuse. Former smoker. Physical Exam: General Appearance: Alert, obviously intoxicated, strong odor of alcohol on her breath. This patient is responding to questions appropriately albeit was slurred speech. This patient appears well-hydrated and well-nourished. Head: Normocephalic atraumatic. Eyes: Pupils equal and round no pallor or injection. No lid edema, erythema or injection. Respiratory: There are no retractions, lungs are clear to auscultation with good air movement bilaterally. Cardiovascular: Regular rate and rhythm. No murmur. Gastrointestinal: Abdomen is soft and nontender, no masses, bowel sounds normal. No focal tenderness at McBurney's point. No Negron sign. Neurological: Motor sensory function is grossly intact. Cranial nerves are normal. Skin: Warm and dry, no rashes. Musculoskeletal: Neck is supple and nontender. Extremities are symmetrical. All joints range without pain or impingement. Psychiatric: No agitation. No depression. Database: EKG: Imaging: Chest x-ray AP portable; the cardiac mediastinal silhouette is unremarkable. No evidence of infiltrate or pneumothorax. No acute cardiopulmonary disease process noted. Interpreted by me. Procedures: Emergency department course: Vital signs reviewed. Patient is mildly hypotensive. Vital signs otherwise normal. Chest x-ray to be obtained. 6:20 p.m., patient serum alcohol is 419. Electrolytes are otherwise unremarkable chest x-ray is unremarkable. I discussed sending the patient to the [facility] to sober. The would rather take her home. The patient is ambulatory at this point. I discussed follow-up with her primary care physician to discuss detox programs with her and her . Return to emergency department precautions reviewed. All of their questions were answered. The patient was discharged in good condition with her who is driving. Differential Diagnosis: The differential diagnosis on this patient includes but is not limited to alcohol intoxication. CVA, hypoglycemia, pneumonia unlikely. This represents a partial list of diagnoses considered. These considerations are based on history, physical exam, past history, reassessment and diagnostic testing. Smoking Status: Never smoked Constitutional: Initial Vital Signs Temperature (C) 37.0 C 06/07/17 17:00 Heart Rate 95 06/07/17 17:00 Respiratory Rate 18 06/07/17 17:00 Blood Pressure 89/62 L 06/07/17 17:00 O2 Sat (%) 99 06/07/17 17:00 O2 Delivery Mode Nasal Cannula O2 (L/minute) 2 Allergies/Adverse Reactions: latex Allergy (Verified 04/30/17 21:30) Home Medications: Medication Instructions Recorded Acetaminophen [Tylenol 325mg (*)] 325 mg PO DAILY PRN 05/01/17 FLUoxetine [Prozac 20 MG (*)] 40 mg PO DAILY 05/01/17 Medical Decision Making - Diagnostics Imaging Results: Imaging Impressions Chest X-Ray 06/07/17 17:28 Impression: 1. No acute pulmonary disease. 2. Improved perihilar interstitial opacities compatible with improved edema or improved bronchopneumonia. - Data Points Laboratory Results: Laboratory Results 06/07/17 17:30 06/07/17 17:30 Sodium 145 mEq/L mEq/L (135-145) Potassium 4.3 mEq/L mEq/L (3.5-5.2) Chloride 103 mEq/L mEq/L (97-110) Carbon Dioxide 23 mEq/l mEq/l (22-31) Anion Gap 19 mEq/L H mEq/L (8-16) BUN 14 mg/dL mg/dL (7-23) Creatinine 0.5 mg/dL L mg/dL (0.6-1.0) Estimated GFR > 60 Glucose 93 mg/dL mg/dL (70-100) Calcium 8.6 mg/dL mg/dL (8.5-10.4) Ethyl Alcohol 419 mg/dL H* mg/dL (0-10) Medications Given: Discontinued Medications Sodium Chloride (Ns) 500 mls @ 1,000 mls/hr IV EDNOW ONE PRN Reason: Protocol Stop: 06/07/17 17:46 Last Admin: 06/07/17 17:42 Dose: Not Given Departure - Departure Disposition: Home, Routine, Self-Care Clinical Impression: Alcoholic intoxication Condition: Good Instructions: Alcohol Intoxication (ED) Additional Instructions: Read and follow provided instructions. Follow-up with your primary care physician in 1-2 days for re-evaluation and to discuss detox treatment options. Do not drink alcohol. Return to the emergency department for seizure, shaking, or other serious concerns. Referrals: NONE *PRIMARY CARE P,. [Primary Care Provider] - As per Instructions
[2017-06-07 18:24] VITALS: BP 89/68; PULSE 90; RESP 16; O2SAT 97
== END 2017-06-07 18:35 | disposition home or self-care (01) ==
DX: F10.129 Alcohol abuse with intoxication, unspecified (principal); Z91.040 Latex allergy status
CPT/HCPCS: G0480

== ENCOUNTER 2017-07-07 21:04 | Emergency (ER) | payer OTHER ==
--- NOTE | 2017-07-07 21:10 | EDPHY ---
HPI/HX/ROS/PE/MDM Narrative: CHIEF COMPLAINT: Intoxicated HISTORY OF PRESENT ILLNESS: The patient is a 66 y/o female with a history of alcoholism arriving via EMS after being found by her intoxicated and on the ground outside her apartment. She denies consuming alcohol. She reports pain in her abdomen. She denies nausea or vomiting. She is oriented to personal and place but not date and is slurring her speech. No fever, chills, chest pain, shortness of breath, palpitations, vomiting, diarrhea, urinary complaints, headache, lightheadedness. Information obtained from EMS due to patient's intoxication. REVIEW OF SYSTEMS: Aside from elements discussed in the HPI, a comprehensive 10-point review of systems was reviewed and is negative. PAST MEDICAL HISTORY: Alcoholism, narcotics dependancy, depression, sepsis, pneumonia, chronic pain, arthritis, hyperlipidemia SOCIAL HISTORY: Lives in [place], , alcohol abuse VITAL SIGNS: Reviewed by me GENERAL: Very thin, resting comfortably in no respiratory distress. HEENT: Atraumatic. Eyes: No icterus, no injection. Mouth: dry mucous membranes. Dry teeth No erythema or lesions. Neck: supple with no adenopathy. LUNGS: Clear to auscultation bilaterally, no wheezes, rhonchi or rales. CARDIAC: Regular rate and rhythm, no rubs, murmurs or gallops. ABDOMEN: Soft, nontender, nondistended, bowel sounds normal. BACK: No CVA tenderness. EXTREMITIES: No trauma. No edema. Range of motion is normal throughout. NEURO: Alert and oriented, grossly nonfocal. SKIN: Warm and dry, no rash. PSYCHIATRIC: Normal mentation, no agitation. (Genet Sung) ED Course: The patient presents with intoxication. She is oriented to person and place but not date. She reports abdominal pain but denies nausea or vomiting. Her exam indicates dry mucus membranes and dry teeth. Abdominal exam is benign. Plan for CBC, basic metabolic panel, lipase, liver function, alcohol level, and 1 L Ns fluid. Patient's alcohol level was 449. The remainder of her labs are relatively unremarkable. Patient will be observed in the emergency department until is safe for her to be discharged to home or to the [facility]. Patient's care will be assumed by Dr. Misha Mtz at 11:10 p.m.. (Genet Sung) 2300 care assumed by me from Dr. Sung pending improvement in her sobriety and re-evaluation. 0130 the patient is ambulating unassisted in the emergency department. She is medically cleared for the arc. (Brady Mtz) MDM: Differential diagnoses for the patient's symptom complex was considered including but not limited to dehydration, drug or alcohol abuse, drug or alcohol withdrawal, electrolyte abnormality, failure to thrive. (Genet Sung) - Data Points Laboratory Results: Laboratory Results 07/07/17 21:48 07/07/17 21:48 07/07/17 07/07/17 21:48 21:48 WBC 6.41 10^3/uL 10^3/uL (3.80-9.50) RBC 4.45 10^6/uL 10^6/uL (4.18-5.33) Hgb 14.0 g/dL g/dL (12.6-16.3) Hct 41.0 % % (38.0-47.0) MCV 92.1 fL fL (81.5-99.8) MCH 31.5 pg pg (27.9-34.1) MCHC 34.1 g/dL g/dL (32.4-36.7) RDW 15.0 % % (11.5-15.2) Plt Count 217 10^3/uL 10^3/uL (150-400) MPV 9.7 fL fL (8.7-11.7) Neut % (Auto) 38.2 % L % (39.3-74.2) Lymph % (Auto) 47.9 % H % (15.0-45.0) [place] % (Auto) 9.8 % % (4.5-13.0) Eos % (Auto) 2.0 % % (0.6-7.6) Baso % (Auto) 1.9 % H % (0.3-1.7) Nucleat RBC Rel Count 0.0 % % (0.0-0.2) Absolute Neuts (auto) 2.45 10^3/uL 10^3/uL (1.70-6.50) Absolute Lymphs (auto) 3.07 10^3/uL H 10^3/uL (1.00-3.00) Absolute Monos (auto) 0.63 10^3/uL 10^3/uL (0.30-0.80) Absolute Eos (auto) 0.13 10^3/uL 10^3/uL (0.03-0.40) Absolute Basos (auto) 0.12 10^3/uL H 10^3/uL (0.02-0.10) Absolute Nucleated RBC 0.00 10^3/uL 10^3/uL (0-0.01) Immature Gran % 0.2 % % (0.0-1.1) Immature Gran # 0.01 10^3/uL 10^3/uL (0.00-0.10) Sodium 145 mEq/L mEq/L (135-145) Potassium 3.9 mEq/L mEq/L (3.5-5.2) Chloride 103 mEq/L mEq/L (97-110) Carbon Dioxide 27 mEq/l mEq/l (22-31) Anion Gap 15 mEq/L mEq/L (8-16) BUN 15 mg/dL mg/dL (7-23) Creatinine 0.6 mg/dL mg/dL (0.6-1.0) Estimated GFR > 60 Glucose 87 mg/dL mg/dL (70-100) Calcium 9.0 mg/dL mg/dL (8.5-10.4) Total Bilirubin 0.3 mg/dL mg/dL (0.1-1.4) Conjugated Bilirubin 0.3 mg/dL mg/dL (0.0-0.5) Unconjugated Bilirubin 0.0 mg/dL mg/dL (0.0-1.1) AST 83 IU/L H IU/L (14-46) ALT 46 IU/L IU/L (9-52) Alkaline Phosphatase 84 IU/L IU/L (38-126) Total Protein 7.4 g/dL g/dL (6.3-8.2) Albumin 4.3 g/dL g/dL (3.5-5.0) Lipase 364 IU/L H IU/L (23-300) Ethyl Alcohol 449 mg/dL H* mg/dL (0-10) Medications Given: Discontinued Medications Sodium Chloride (Ns) 1,000 mls @ 0 mls/hr IV ONCE ONE; Wide Open PRN Reason: Protocol Stop: 07/07/17 21:15 Last Admin: 07/07/17 21:55 Dose: 1,000 mls General Time Seen by Provider: 07/07/17 21:06 Initial Vital Signs: Initial Vital Signs Temperature (C) 36.0 C 07/07/17 21:12 Heart Rate 77 07/07/17 21:12 Respiratory Rate 16 07/07/17 21:12 Blood Pressure 109/75 07/07/17 21:12 O2 Sat (%) 93 07/07/17 21:12 O2 Delivery Mode Nasal Cannula O2 (L/minute) 2 Allergies/Adverse Reactions: latex Allergy (Verified 07/07/17 21:18) Home Medications: Medication Instructions Recorded Acetaminophen [Tylenol 325mg (*)] 325 mg PO DAILY PRN 05/01/17 FLUoxetine [Prozac 20 MG (*)] 40 mg PO DAILY 05/01/17 Departure - Departure Disposition: Home, Routine, Self-Care Clinical Impression: Alcohol intoxication Qualifiers: Complication of substance-induced condition: uncomplicated Qualified Code(s): F10.920 - Alcohol use, unspecified with intoxication, uncomplicated Condition: Good Instructions: Alcohol Intoxication (ED), Abuse of Alcohol (ED) Additional Instructions: 1. Stop drinking alcohol in excessive quantities. Eat a balanced diet. 2. Return to the emergency department of worsening of condition. Referrals: Abimael Varela MD [Primary Care Provider] - As per Instructions Report Scribed for: Genet Sung Report Scribed by: Mehreen Judge Date of Report: 07/07/17 Time of Report: 21:22 Physician Review and Approval Statement: Portions of this note were transcribed by a medical claims assistant. I personally performed a history, physical exam, medical decision making, and confirmed accuracy of information the transcribed note.
[2017-07-07] MEDS ORDERED: NS 1,000 ML IV ONE (21:14)
[2017-07-07 22:05] LABS: PLATELET COUNT 217 10^3/uL (150-400)
[2017-07-08] MEDS ORDERED: CHLORDIAZEPOXIDE 25MG PREPK#6 BTL TAKEHOME ONE ×2 (01:25→01:27)
[2017-07-08 01:38] VITALS: BP 110/62
== END 2017-07-08 02:30 | disposition home or self-care (01) ==
LOC: EDUNIT#
DX: F10.920 Alcohol use, unspecified with intoxication, uncomplicated (principal); E86.9 Volume depletion, unspecified; Z91.040 Latex allergy status
CPT/HCPCS: G0480

== ENCOUNTER → 2018-02-22 | Outpatient (CLI) | payer OTHER | LOC: FIMAGING 13:05 | PROVIDERS: ATTEND Family Medicine | DX: Z12.31 Encounter for screening mammogram for malignant neoplasm of breast (principal); Z13.820 Encounter for screening for osteoporosis; M85.89 Other specified disorders of bone density and structure, multiple sites; Z78.0 Asymptomatic menopausal state ==

== ENCOUNTER → 2018-03-05 | Outpatient (CLI) | payer OTHER | LOC: FIMAGING 08:45 | PROVIDERS: ATTEND Internal Medicine Gastroenterology | DX: K80.20 Calculus of gallbladder without cholecystitis without obstruction (principal); K76.0 Fatty (change of) liver, not elsewhere classified ==